=== PATIENT | female | born 1990 | race Caucasian/White ===

== ENCOUNTER 2017-04-19 07:41 | Emergency (ER) | payer BC ==
[2017-04-19 07:55] VITALS: BP 122/78
--- NOTE | 2017-04-19 09:24 | UC ---
Complaint Female HPI - HPI Summary HPI Summary: SEVERAL DAYS OF DYSURIA AND VAGINAL DISCOMFORT. HAS A H/O RECURRENT UTI AND VAGINITIS. HAS BEEN ON CIPRO FOR 3 DAYS WITH SOME IMPROVEMENT IN URINARY SX BUT PT ALSO C/O VAGINAL DISCHARGE, IRRITATION AND ODOR. USED MONISTAT YESTERDAY BUT FEELS HER SX ARE MORE C/W BV. - History Of Current Complaint Chief Complaint: UCGU Stated Complaint: UTI Time Seen by Provider: 04/19/17 08:45 Hx Obtained From: Patient Hx Last Menstrual Period: 04/03/17 Onset/Duration: Gradual Onset, Lasting Days, Still Present Timing: Constant Severity Initially: Moderate Severity Currently: Moderate Pain Intensity: 0 Pain Scale Used: 0-10 Numeric Character: Dull, Burning Aggravating Factor(s): Nothing Alleviating Factor(s): Nothing Associated Signs And Symptoms: Positive: Vaginal Discharge. Negative: Fever, Back Pain, Nausea, Vomiting(# Of Episodes =), Genital Swelling, Genital Blisters - Allergies/Home Medications Allergies/Adverse Reactions: Allergies Allergy/AdvReac Type Severity Reaction Status Date / Time No Known Allergies Allergy Verified 04/19/17 07:55 Home Medications: Home Medications Amphetamine-Dextroamphetamine [Adderall 10 mg-] 1 tab PO DAILY 04/19/17 [ History Confirmed 04/19/17] Ciprofloxacin HCl [Cipro 500 MG TAB] 500 mg PO 04/19/17 [History] PMH/Surg Hx/FS Hx/Imm Hx - Additional Past Medical History Additional PMH: ADHD - Surgical History Surgical History: Yes Surgery Procedure, Year, and Place: wisdom teeth; surgery for multiple UTI's as child - Family History Known Family History: Positive: Hypertension - Social History Alcohol Use: Occasionally Substance Use Type: None Smoking Status (MU): Never Smoked Tobacco Review of Systems Constitutional: Negative Respiratory: Negative Cardiovascular: Negative Gastrointestinal: Abdominal Pain Genitourinary: Dysuria, Frequency All Other Systems Reviewed And Are Negative: Yes Physical Exam Triage Information Reviewed: Yes Appearance: Well-Appearing, No Pain Distress, Well-Nourished Vital Signs: Initial Vital Signs Temp 98.3 F 04/19/17 07:49 Pulse 110 04/19/17 07:49 Resp 16 04/19/17 07:49 BP 122/78 04/19/17 07:49 Pulse Ox 98 04/19/17 07:49 Vital Signs Reviewed: Yes Eyes: Positive: Conjunctiva Clear ENT: Positive: Hearing grossly normal Neck: Positive: Supple Respiratory: Positive: No respiratory distress, No accessory muscle use Cardiovascular: Positive: Pulses Normal Abdomen Description: Positive: Soft, Other: - MILD SUPRAPUBIC TTP. Negative: CVA Tenderness (R), CVA Tenderness (L), Distended, Guarding Musculoskeletal: Positive: No Edema Neurological: Positive: Alert Psychological: Positive: Age Appropriate Behavior Skin: Negative: rashes Diagnostics - Laboratory Diagnostic Studies Completed/Ordered: URINE DIP SP. GR. 1.015, 2+LEUKS Complaint Female Dx - Differential Dx/Diagnosis Provider Diagnoses: VAGINITIS Discharge - Discharge Plan Condition: Stable Disposition: HOME Prescriptions: Clindamycin Cap(NF) [Cleocin 300 mg Cap(NF)] 300 mg PO BID #14 cap Patient Education Materials: Bacterial Vaginosis (ED), Vaginitis (ED) Referrals: Reid Combs MD [Primary Care Provider] - If Needed Additional Instructions: URINE SENT FOR CULTURE TO ENSURE NO UTI. VAGINAL SWAB SENT TO TEST FOR BV AND YEAST. CLINDA TO TREAT FOR PRESUMPTIVE BV. WE WILL CALL YOU IF YOUR TREATMENT NEEDS MODIFICATION ONCE RESULTS ARE AVAILABLE. SEEK FOLLOW-UP IF YOUR SYMPTOMS DO NOT IMPROVE EXPECTED.
== END 2017-04-19 09:35 | disposition home or self-care (01) ==
LOC: UCEAST 07:41
DX: N76.0 Acute vaginitis (principal); B96.89 Other specified bacterial agents as the cause of diseases classified elsewhere; F90.9 Attention-deficit hyperactivity disorder, unspecified type
CPT/HCPCS: 81003; 84702; 87086; 87480; 87510; 87660; 99212; G0463

== ENCOUNTER 2018-02-12 17:36 | Emergency (ER) | payer BC ==
[2018-02-12 17:46] VITALS: BP 136/73
--- NOTE | 2018-02-12 18:22 | UC ---
Complaint Female HPI - HPI Summary HPI Summary: 27 yo female with c/o dysuria x 1 day. Reports associated abdominal pressure. No fever, n/v. No hematuria. No vaginal symptoms. She is sexually active. - History Of Current Complaint Chief Complaint: UCGU Stated Complaint: URINARY COMPLAINT Hx Last Menstrual Period: iud Pain Intensity: 8 - Allergies/Home Medications Allergies/Adverse Reactions: Allergies Allergy/AdvReac Type Severity Reaction Status Date / Time No Known Allergies Allergy Verified 02/12/18 17:46 PMH/Surg Hx/FS Hx/Imm Hx Previously Healthy: Yes - Surgical History Surgical History: Yes Surgery Procedure, Year, and Place: wisdom teeth; surgery for multiple UTI's as child - Family History Known Family History: Positive: Hypertension - Social History Alcohol Use: Occasionally Substance Use Type: None Smoking Status (MU): Never Smoked Tobacco Review of Systems Constitutional: Negative Skin: Negative Eyes: Negative ENT: Negative Respiratory: Negative Cardiovascular: Negative Gastrointestinal: Negative Genitourinary: Dysuria Motor: Negative Neurovascular: Negative Musculoskeletal: Negative Neurological: Negative Psychological: Negative Is Patient Immunocompromised?: No All Other Systems Reviewed And Are Negative: Yes Physical Exam Triage Information Reviewed: Yes Appearance: Well-Appearing Vital Signs: Initial Vital Signs Temp 98.0 F 02/12/18 17:42 Pulse 67 02/12/18 17:42 Resp 18 02/12/18 17:42 BP 136/73 02/12/18 17:42 Pulse Ox 100 02/12/18 17:42 Vital Signs Reviewed: Yes ENT Exam: Normal Neck exam: Normal Respiratory Exam: Normal Cardiovascular Exam: Normal Abdominal Exam: Normal Abdomen Description: Positive: Soft. Negative: Nontender - mild suprapubic discomfort Musculoskeletal Exam: Normal Neurological Exam: Normal Psychological Exam: Normal Skin Exam: Normal Diagnostics - Laboratory Diagnostic Studies Completed/Ordered: UA - + LE, + blood Complaint Female Dx - Course Course Of Treatment: Otherwise healthy 27 yo female with c/o dysuria x 1d. UA suggestive of UTI. Treat for uncomplicated UTI - Differential Dx/Diagnosis Differential Diagnosis/HQI/PQRI: Pelvic Inflammatory Disease, Sexually Transmitted Disease, Urinary Tract Infection Provider Diagnoses: Uncomplicated UTI Discharge - Sign-Out/Discharge Documenting (check all that apply): Discharge/Admit/Transfer - Discharge Plan Condition: Stable Disposition: HOME Prescriptions: Nitrofurantoin Monohyd/M-Cryst [Macrobid 100 mg Capsule] 100 mg PO BID #10 cap Phenazopyridine 200 mg (NF) [Pyridium 200 MG tab *] 200 mg PO TID PRN #15 tab PRN Reason: dysuria Patient Education Materials: Urinary Tract Infection in Women (DC) Referrals: Dayna Stein MD [Primary Care Provider] - Additional Instructions: Instructions: 1. Please take antibiotics as directed - Billing Disposition and Condition Condition: STABLE Disposition: HOME
== END 2018-02-12 18:19 | disposition home or self-care (01) ==
LOC: UCEAST 17:36
DX: N39.0 Urinary tract infection, site not specified (principal)
CPT/HCPCS: 81003; 87077; 87086; 99212; G0463